=== PATIENT | male | born 1945 | race Caucasian/White ===

== ENCOUNTER 2018-01-22 11:16 | Outpatient (RCR) | payer MEDICARE ==
[2018-01-22] MEDS ORDERED: LIDOCAINE VISC 2% SOLN 15 ML UDC ONE (17:45)
== END 2018-01-28 ==
LOC: WCC 11:16
PROVIDERS: ATTEND Plastic Surgery
DX: L89.893 Pressure ulcer of other site, stage 3 (principal); L89.890 Pressure ulcer of other site, unstageable; I73.9 Peripheral vascular disease, unspecified; I87.2 Venous insufficiency (chronic) (peripheral); I10 Essential (primary) hypertension; I48.91 Unspecified atrial fibrillation; Z74.01 Bed confinement status

== ENCOUNTER 2018-02-19 11:18 | Outpatient (RCR) | payer MEDICARE ==
[~2018-02-19 11:18] MED LIST: LIDOCAINE VISC 2% SOLN 15 ML UDC ONE
[2018-02-19] MEDS ORDERED: LIDOCAINE/PRILOCAINE 2.5-2.5% KIT ONE ×2 (13:21→17:53)
== END 2018-02-28 ==
LOC: WCC 11:18
PROVIDERS: ATTEND Plastic Surgery
DX: L89.893 Pressure ulcer of other site, stage 3 (principal); L89.890 Pressure ulcer of other site, unstageable; I73.9 Peripheral vascular disease, unspecified; I87.2 Venous insufficiency (chronic) (peripheral); I10 Essential (primary) hypertension; I48.91 Unspecified atrial fibrillation; Z74.01 Bed confinement status

== ENCOUNTER → 2018-03-05 | Outpatient (CLI) | payer MEDICARE ==
[~2018-03-05] MED LIST changes: -LIDOCAINE VISC 2% SOLN 15 ML UDC ONE; +MUPIROCIN 2% OINT 22 GM TUBE ONE
== END ==
LOC: WCC 10:50
PROVIDERS: ATTEND Plastic Surgery
DX: L89.893 Pressure ulcer of other site, stage 3 (principal); L89.890 Pressure ulcer of other site, unstageable; I87.2 Venous insufficiency (chronic) (peripheral); I73.9 Peripheral vascular disease, unspecified; I10 Essential (primary) hypertension; I48.91 Unspecified atrial fibrillation; Z74.01 Bed confinement status